=== PATIENT | female | born 2005 | race Hispanic/Latino ===

== ENCOUNTER 2025-02-07 06:19 | Inpatient (IN) | payer OTHER ==
[2025-02-07 06:39] VITALS: BMI 32.4
[2025-02-07] MEDS ORDERED: hydrALAZINE 20 MG/ML VIAL SLOW IVP PRN ×2 (07:02→13:41)
[2025-02-07] MEDS ORDERED: Tranexamic Acid 1,000 MG/10 ML VIAL IVP PRN (07:02)
[2025-02-07] MEDS ORDERED: Methylergonovine 0.2 MG/ML VIAL IM PRN ×2 (07:02→13:41)
[2025-02-07] MEDS ORDERED: Diphenoxylate HCl/Atropine Tablet PO PRN ×2 (07:02)
[2025-02-07] MEDS ORDERED: Acetaminophen 500 MG TAB PO PRN (07:02)
[2025-02-07] MEDS ORDERED: Carboprost 250 MCG/ML AMP IM PRN (07:02)
[2025-02-07] MEDS ORDERED: Oxytocin 30 units/NS 500 ML 500 ML IV SCH ×2 (07:15→13:45)
[2025-02-07 07:45] LABS: Hematocrit 32.8 % (34.9-44.5); Hemoglobin 10.8 g/dL (12.0-15.5); Mean Corpuscular Hemoglobin 27.8 pg (27.0-33.0); Mean Corpuscular Volume 84.5 fL (81.6-98.3); Platelet Count 241 10x3/uL (150-450); Red Blood Cell (RBC) Count 3.88 10x6/uL (3.90-5.03); White Blood Cell (WBC) Count 7.63 10x3/uL (3.5-10.5)
[2025-02-07 08:18] LABS: Hep B Surf Ag - L&D Non-Reactive S/CO (NonReactive)
[2025-02-07 08:19] LABS: Syphilis Antibody Index 0.07 S/CO (<1.00 Non-Reactive)
[2025-02-07 08:57] LABS: ALT (SGPT) 12 U/L (Less than 34); AST (SGOT) 18 U/L (11-34); Albumin 2.8 g/dL (3.1-4.5); Alkaline Phosphatase 98 U/L (40-110); Anion Gap 15 mmol/L (10-20); BUN (Urea Nitrogen) 7 mg/dL (7.0-18.7); Bilirubin, Total 0.2 mg/dL (0.3-1.2); Calc. Creatinine Clearance 233 mL/min (70-130); Calcium 8.3 mg/dL (7.8-10.44); Carbon Dioxide 18 mmol/L (22-29); Chloride 109 mmol/L (98-107); Globulin 3.1 g/dL (2.4-3.5); Glucose 93 mg/dL (70-105); Potassium 3.7 mmol/L (3.5-5.1); Sodium 138 mmol/L (136-145)
[2025-02-07 09:14] LABS: Protein, Urine Random Quant 11.0 mg/dL (1-14)
[2025-02-07] MEDS: Ondansetron PF 4 MG/2 ML Vial IVP PRN (10:35)
[2025-02-07] MEDS: fentaNYL/Ropivacaine Epidural 100 ML ONE (10:52)
[2025-02-07] MEDS ORDERED: Acetaminophen 325 MG TAB PO PRN (11:00)
[2025-02-07] MEDS ORDERED: Communication Order-Pharmacy FS SCH (11:00)
[2025-02-07] MEDS ORDERED: diphenhydrAMINE 50 MG/ML VIAL IVP PRN (11:00)
[2025-02-07] MEDS ORDERED: fentaNYL 2 mcg/Ropivacaine 0.2% Epidural 100 ML CADD EPIDURAL SCH (11:00)
[2025-02-07] MEDS ORDERED: Ondansetron PF 4 MG/2 ML Vial IVP PRN ×2 (11:00→13:41)
[2025-02-07] MEDS ORDERED: Lanolin Ointment 7 GM TUBE TOP PRN (13:41)
[2025-02-07] MEDS ORDERED: Preparation H Ointment 28 GM TUBE PR PRN (13:41)
[2025-02-07] MEDS ORDERED: Boostrix 0.5 ML (Tdap) VIAL (>/=7 yrs of age) IM ONE (13:41)
[2025-02-07] MEDS ORDERED: Milk Of Magnesia 30 ML UDCUP PO PRN (13:41)
[2025-02-07] MEDS ORDERED: Benzocaine-Menthol 82.5 ML CAN TOP PRN (13:41)
[2025-02-07] MEDS ORDERED: Bisacodyl 10 MG SUPP PR PRN (13:41)
[2025-02-07] MEDS: Oxytocin 30 units/NS 500 ML 500 ML IV SCH (14:45)
[2025-02-07] MEDS: Lidocaine 1% (PF) 30 ML VIAL SC PRN (14:53)
[2025-02-07] MEDS: Ibuprofen 800 MG TAB PO PRN (16:41)
[2025-02-07] MEDS ORDERED: Bupivacaine/Epinephrine 0.25% 30 ML VIAL ONE (17:00)
[2025-02-07] MEDS: Ibuprofen 800 MG TAB PO SCH (19:36)
[2025-02-07] MEDS: Ferrous Sulfate 325 MG TAB PO SCH (19:38)
[2025-02-08] MEDS: Ibuprofen 800 MG TAB PO SCH (15:40)
[2025-02-09 09:59] VITALS: BP 114/68; TEMP 98.2
== END 2025-02-09 13:28 | disposition home or self-care (01) | DRG 807 ==
LOC: CSHLD/OP 06:19 → CSHLD 06:51 → CSHPP 23:45
PROVIDERS: ADMIT Family Medicine; ATTEND Family Medicine
PROC: 10E0XZZ Delivery of Products of Conception, External Approach (ICD-10-PCS; principal; 2025-02-07)
PROC: 0HQ9XZZ Repair Perineum Skin, External Approach (ICD-10-PCS; 2025-02-07)
PROC: 0UQMXZZ Repair Vulva, External Approach (ICD-10-PCS; 2025-02-07)
DX: O99.02 Anemia complicating childbirth (principal); Z37.0 Single live birth; Z3A.39 39 weeks gestation of pregnancy; O70.0 First degree perineal laceration during delivery; Z14.8 Genetic carrier of other disease; Z79.899 Other long term (current) drug therapy; Z79.82 Long term (current) use of aspirin; O13.4 Gestational [pregnancy-induced] hypertension without significant proteinuria, complicating childbirth; D50.9 Iron deficiency anemia, unspecified
CPT/HCPCS: 51702; 80053; 82570; 84156; 85027; 86780; 86850; 86900; 86901; 87340; 99285; J2405; J2590; J7120